=== PATIENT | male | born 1990 | race Caucasian/White ===

== ENCOUNTER 2019-04-04 19:58 | Emergency (ER) | payer OTHER ==
--- NOTE | 2019-04-04 21:18 | ED ---
Skin Complaint - HPI Summary HPI Summary: about 4:30 this afternoon he was stung bite or came in contact with something that left 5 small round skin avulsion in a liner fashion on radial aspect of left wrist and one center of wrist---itched hurt at time of episode no pain or itch now patient and family is concerned about infection - History of Current Complaint Chief Complaint: EDRashSkinAbscess Time Seen by Provider: 04/04/19 21:11 Stated Complaint: INSECT BITE ON LT ARM PER PT Hx Obtained From: Patient Onset/Duration: Started Hours Ago - 5, Still Present Skin Exposure Onset/Duration: Hours Ago - 5 Timing: Constant Pain Intensity: 0 Pain Scale Used: 0-10 Numeric Skin Location: Discrete Character: Redness Aggravating Symptom(s): Nothing Alleviating Symptom(s): Nothing Associated Signs & Symptoms: Negative Related History: Insect Bite/Sting, Possible Reaction to: Insect - Allergy/Home Medications Allergies/Adverse Reactions: Allergies Allergy/AdvReac Type Severity Reaction Status Date / Time No Known Allergies Allergy Verified 04/04/19 20:03 PMH/Surg Hx/FS Hx/Imm Hx Previously Healthy: Yes - Immunization History Date of Tetanus Vaccine: unsure of date but is up to date Immunizations Up to Date: Yes Infectious Disease History: No Infectious Disease History: Denies: Traveled Outside the [place] in Last 30 Days - Family History Known Family History: Positive: None - Social History Occupation: Employed Full-time Lives: With Family Alcohol Use: None Hx Substance Use: No Hx Tobacco Use: No Smoking Status (MU): Never Smoked Tobacco Do You Chew or Dip Tobacco: No Have You Chewed or Dipped Tobacco in the LAST YEAR: No Review of Systems Constitutional: Negative Eyes: Negative ENT: Negative Cardiovascular: Negative Respiratory: Negative Gastrointestinal: Negative Genitourinary: Negative Musculoskeletal: Negative Skin: Other Positive: Other - linesr bug bites with skin avulsion left wrist Neurological: Negative Psychological: Normal All Other Systems Reviewed And Are Negative: Yes Physical Exam Triage Information Reviewed: Yes Vital Signs On Initial Exam: Initial Vitals Temp Pulse Resp BP Pulse Ox 97 F 75 18 138/72 99 04/04/19 20:01 04/04/19 20:01 04/04/19 20:01 04/04/19 20:01 04/04/19 20:01 Vital Signs Reviewed: Yes Appearance: Positive: Well-Appearing, No Pain Distress, Well-Nourished Skin: Positive: Warm, Skin Color Reflects Adequate Perfusion Eyes: Positive: Normal, EOMI, AC ENT: Positive: Normal ENT inspection, Hearing grossly normal. Negative: Trismus , Muffled voice, Hoarse voice Neck: Positive: Supple, Nontender Respiratory/Lung Sounds: Positive: Breath Sounds Present Cardiovascular: Positive: Normal, RRR Musculoskeletal: Positive: Normal, Strength/ROM Intact Neurological: Positive: Normal, Sensory/Motor Intact, Alert, Oriented to Person Place, Time, CN Intact II-III Psychiatric: Positive: Normal AVPU Assessment: Alert - [place] Coma Scale Best Eye Response: 4 - Spontaneous Best Motor Response: 6 - Obeys Commands Best Verbal Response: 5 - Oriented Coma Scale Total: 15 Diagnostics - Vital Signs Vital Signs Temp Pulse Resp BP Pulse Ox 04/04/19 20:01 97 F 75 18 138/72 99 - Laboratory Lab Statement: Any lab studies that have been ordered have been reviewed, and results considered in the medical decision making process. Course/Dx - Course Assessment/Plan: soap and water wash , bactroban---may start keflex if s/s of infection follow with pcp prn - Diagnoses Provider Diagnoses: Insect bite Discharge - Sign-Out/Discharge Documenting (check all that apply): Patient Departure Patient Received Moderate/Deep Sedation with Procedure: No - Discharge Plan Condition: Good Disposition: HOME Prescriptions: Cephalexin CAP* [Keflex CAP*] 500 mg PO QID #20 cap Patient Education Materials: Insect Bite or Sting (ED), Acute Wound Care (ED) Print Language: GERMAN Referrals: Care [facility] [Outside] - If Needed - Billing Disposition and Condition Condition: GOOD Disposition: Home
[2019-04-04] MEDS ORDERED: Mupirocin 2% CREAM* 15 GM TOPICAL ONE (21:19)
[2019-04-04 22:07] VITALS: BP 121/56
== END 2019-04-04 22:05 | disposition home or self-care (01) ==
LOC: ED 19:58
DX: S60.862A Insect bite (nonvenomous) of left wrist, initial encounter (principal); W57.XXXA Bitten or stung by nonvenomous insect and other nonvenomous arthropods, initial encounter; Y92.9 Unspecified place or not applicable
CPT/HCPCS: 99282; A9270-GY